=== PATIENT | male | born 1955 | race Caucasian/White ===

== ENCOUNTER 2017-04-13 16:54 | Emergency (ER) | payer OTHER ==
--- NOTE | 2017-04-13 17:38 | ER Document Report ---
ED Eye Complaint - General Chief Complaint: Eye Problem Stated Complaint: DISORIENTED, BLURRY VISION Time Seen by Provider: 04/13/17 17:30 Notes: Patient was in a van riding home from work this afternoon just after 4 PM when he noticed some slight aching in his right eye and that he was not seeing right out of the eye. He describes a visual field defect of the lateral half of the right eye. He got out of the van and into his truck to drive the rest of the way home and he missed the turn to his road to his house twice. He says he felt a little bit disoriented such as with his equilibrium. He described the right eye symptoms as aching. Not pain. Has not been sick recently. No head congestion or sinus congestion. No fever or chills. Says he may have had a little bit of a headache. TRAVEL OUTSIDE OF THE [place] IN LAST 30 DAYS: No - Related Data Allergies/Adverse Reactions: No Known Allergies Allergy (Verified 10/08/14 10:41) Past Medical History - Social History Smoking Status: Unknown if Ever Smoked Cigarette use (# per day): No Family History: Reviewed & Not Pertinent - Past Medical History Cardiac Medical History: Reports: Hx Hypercholesterolemia, Hx Hypertension - 8- 10 yrs Pulmonary Medical History: Reports: Hx Bronchitis - between 5904-3741/ bronchitis & pneumonia, Hx Pneumonia, Hx Sleep Apnea Renal/ Medical History: Reports: Hx Kidney Stones GI Medical History: Reports: Hx Hiatal Hernia Musculoskeltal Medical History: Reports Hx Arthritis Psychiatric Medical History: Reports: Hx Bipolar Disorder Past Surgical History: Reports: Hx Appendectomy, Hx Herniorrhaphy, Hx Orthopedic Surgery - Back surgery, Hx Tonsillectomy - Immunizations Hx Diphtheria, Pertussis, Tetanus Vaccination: Yes Hx Pneumococcal Vaccination: 09/03/10 Review of Systems - Review of Systems Notes: REVIEW OF SYSTEMS: CONSTITUTIONAL : Denies fever. EENT: Denies ear, nose or mouth or throat pain or other symptoms. CARDIOVASCULAR: Denies chest pain. RESPIRATORY: Denies cough, chest congestion, or shortness of breath. GASTROINTESTINAL: Denies abdominal pain or nausea, vomiting, or diarrhea. GENITOURINARY: Denies difficulty or painful urinating, urinary frequency, blood in urine. MUSCULOSKELETAL: Denies back or neck pain. Denies joint pain or swelling. SKIN: Denies rash or skin lesions. NEUROLOGICAL: Denies LOC or altered mental status. Very slight generalized headache. Denies sensory loss or motor deficits. ALL OTHER SYSTEMS REVIEWED AND NEGATIVE. Physical Exam - Vital signs Vitals: Temp Pulse Resp BP Pulse Ox 97.5 F 106 H 18 169/96 H 97 04/13/17 16:58 04/13/17 16:58 04/13/17 16:58 04/13/17 16:58 04/13/17 16:58 Interpretation: Hypertensive - Mild - Notes Notes: PHYSICAL EXAMINATION: GENERAL: Well-appearing, in no acute distress. Vital signs all essentially normal except for slight elevation of the patient's blood pressure. Patient is ambulatory without any assistance or difficulty. HEAD: Atraumatic, normocephalic. EYES: Pupils equal round and reactive to light, extraocular movements intact. Patient says he is unable to see the outer half of his right eye visual field. He says his visual assessment capability stops at the midline. Does not complain of any such deficit with the left eye. ENT: oropharynx clear without exudates. Moist mucous membranes. NECK: Normal range of motion, supple. No bruits heard. LUNGS: Breath sounds clear and equal bilaterally. HEART: Regular rate and rhythm without murmurs. ABDOMEN: Soft, nontender. No guarding or rebound. BACK: No tenderness throughout entire back. EXTREMITIES: Normal range of motion without pain. NEUROLOGICAL: Normal speech, normal gait. Normal sensory, motor, and reflex exams. Awake, alert, and oriented x3. PSYCH: Normal mood, normal affect. SKIN: Warm, dry, no rashes. Course - Re-evaluation Re-evalutation: 04/13/17 19:52 Patient's intraocular pressure was determined to be about 16-18 in each eye. About 6:40 PM, I went back and reassessed the patient's eye exam. He continues to describe the same complete loss of vision in the lateral half of the visual field of the right eye. However, when I had him cover his right eye and assess the visual field, patient also has loss of the medial half of the visual field of the left eye. The only way he can see to the medial aspect from the left eye is by moving the eye itself to look to the medial, right side. I think he was doing this initially as well and just not noting that he was having the problem with both eyes. 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 His CT scan is normal. I discussed the case with Dr. Patel, and we are of agreement that I will present to the patient doing no treatment and is possibly remaining exactly as he is now or giving TPA with the possibility it might improve his vision, but also carries with it about a 6% chance of intracranial hemorrhage, and about a 3% chance of in that situation. I spoke with the patient and his going over all the pros and cons of treatment or not and they both are in agreement with giving the TPA which was then ordered. Patient is going to be transferred to [facility] to the service of Dr. Reeves. - Vital Signs Vital signs: Temp Pulse Resp BP Pulse Ox 97.5 F 106 H 17 170/96 H 97 04/13/17 16:58 04/13/17 16:58 04/13/17 19:50 04/13/17 19:45 04/13/17 19:50 - Laboratory Result Diagrams: 04/13/17 17:57 04/13/17 17:57 - Diagnostic Test Radiology reviewed: Image reviewed, Reports reviewed - CT scan of the brain was normal. - EKG Interpretation by [place] EKG shows normal: Sinus rhythm Rate: Normal Rhythm: NSR [place]/QRS: Left axis deviation Critical Care Note - Critical Care Note Total time excluding time spent on procedures (mins): 60 Discharge - Discharge Clinical Impression: Hemianopsia Stroke Qualifiers: CVA mechanism: unspecified Qualified Code(s): I63.9 - Cerebral infarction, unspecified Condition: Stable Disposition: [facility] Referrals: CHA BABCOCK MD [Primary Care Provider] - Follow up as needed
[2017-04-13] MEDS ORDERED: TETRACAINE HCL 0.5% OPH SOLN 2 ML ONE (17:45)
[2017-04-13 18:15] LABS: ABSOLUTE EOSINOPHILS # (AUTO) 0.2 10^3/uL (0.0-0.6); ABSOLUTE LYMPHOCYTES (AUTO) 2.5 10^3/uL (0.5-4.7); ABSOLUTE MONOCYTES (AUTO) 0.7 10^3/uL (0.1-1.4); BASOPHILS % (AUTO) 0.7 % (0-2); HEMATOCRIT 45.4 % (37.9-51.0); HEMOGLOBIN 15.7 g/dL (13.5-17.0); HGB HCT DIFFERENCE 1.7; LYMPHOCYTES % (AUTO) 33.4 % (13-45); MEAN CORPUSCULAR HEMOGLOBIN 30.2 pg (27.0-33.4); MEAN CORPUSCULAR HGB CONC 34.6 g/dL (32.0-36.0); MEAN CORPUSCULAR VOLUME 87 fl (80-97); MONOCYTES % (AUTO) 9.7 % (3-13); RED CELL DISTRIBUTION WIDTH 13.5 % (11.5-14.0); SEGMENTED NEUTROPHILS % (AUTO) 53.2 % (42-78); WHITE BLOOD COUNT 7.4 10^3/uL (4.0-10.5)
--- NOTE | 2017-04-13 18:22 | RADIOLOGY REPORT (SQ) ---
EXAM DESCRIPTION: CT HEAD WITHOUT COMPLETED DATE/TIME: 04/13/2017 6:08 pm REASON FOR STUDY: Loss of lateral peripheral vision right eye COMPARISON: 2009 TECHNIQUE: Axial images acquired through the brain without intravenous contrast. Images reviewed wi th bone, brain and subdural windows. Images stored on PACS. All CT scanners at this facility use dose modulation, iterative reconstruction, and/or weight based d osing when appropriate to reduce radiation dose to as low as reasonably achievable (ALARA). [facility]: Dose Right [facility]: CareDose [facility]: Dose Right [facility]: Teradose 4D [facility]: Smart Silver Curve RADIATION DOSE: Up-to-date CT equipment and radiation dose reduction techniques were employed. CTDIv ol: 64.6 mGy. DLP: 1163 mGy-cm. mGy. LIMITATIONS: None. FINDINGS: VENTRICLES: Normal size and contour. CEREBRUM: No masses. No hemorrhage. No midline shift. Normal mendoza/white matter differentiation. N o evidence for acute infarction. CEREBELLUM: No masses. No hemorrhage. No alteration of density. No evidence for acute infarction. EXTRAAXIAL SPACES: No fluid collections. No masses. ORBITS AND GLOBE: No intra- or extraconal masses. Normal contour of globe without masses. CALVARIUM: No fracture. PARANASAL SINUSES: No fluid or mucosal thickening. SOFT TISSUES: No mass or hematoma. OTHER: No other significant finding. IMPRESSION: NORMAL BRAIN CT WITHOUT CONTRAST. TECHNICAL DOCUMENTATION: JOB ID: [id number] Quality ID # [id number]: Final reports with documentation of one or more dose reduction techniques (e.g., Au tomated exposure control, adjustment of the mA and/or kV according to patient size, use of iterative reconstruction technique) 2010 [employer]- All Rights Reserved
[2017-04-13 18:27] LABS: ALANINE AMINOTRANSFERASE 35 U/L (21-72); ALBUMIN 4.5 g/dL (3.5-5.0); ALKALINE PHOSPHATASE 65 U/L (38-126); ANION GAP 10 (5-19); ASPARTATE AMINO TRANSFERASE 18 U/L (17-59); BILIRUBIN,DIRECT 0.3 mg/dL (0.0-0.4); BILIRUBIN,TOTAL 0.6 mg/dL (0.2-1.3); BLOOD UREA NITROGEN 13 mg/dL (7-20); CALCIUM 9.4 mg/dL (8.4-10.2); CARBON DIOXIDE 26 mmol/L (22-30); CHLORIDE 106 mmol/L (98-107); CREATININE RESULT 0.84 mg/dL (0.52-1.25); GLUCOSE 90 mg/dL (75-110); SODIUM 141.7 mmol/L (137-145); TOTAL PROTEIN 7.5 g/dL (6.3-8.2)
[2017-04-13] MEDS ORDERED: ALTEPLASE INJ 100 MG VIAL ONE (19:08)
[2017-04-13 20:18] VITALS: BP 159/100
--- NOTE | 2017-04-13 22:47 | EKG REPORT ---
SEVERITY:- OTHERWISE NORMAL ECG - SINUS RHYTHM LEFT AXIS DEVIATION : Confirmed by: Luann Harry 13-Apr-2017 22:46:20
== END 2017-04-13 20:20 | disposition short-term general hospital (02) ==
LOC: ER 16:54
DX: I63.9 Cerebral infarction, unspecified (principal); H53.47 Heteronymous bilateral field defects; H57.11 Ocular pain, right eye; H53.8 Other visual disturbances; R42 Dizziness and giddiness
CPT/HCPCS: 93005; 99291; 96365; 36415; 85025; 80053; 70450; 93010; J2997